=== PATIENT | female | born 1950 | race Caucasian/White ===

== ENCOUNTER 2021-06-26 01:50 | Emergency (ER) | payer OTHER, SELFPAY ==
[~2021-06-26] VITALS: Ht 157.5 cm; Wt 74.8 kg
[2021-06-26 01:58] VITALS: BP_SYST 153
[2021-06-26] MEDS ORDERED: AZIT-93 PO (04:21)
[2021-06-26 04:47] VITALS: BP_SYST 153
== END 2021-06-26 04:47 | disposition home or self-care (01) ==
LOC: SED 01:50
DX: J40 Bronchitis, not specified as acute or chronic (principal); Z88.1 Allergy status to other antibiotic agents; Z20.822 Contact with and (suspected) exposure to COVID-19
CPT/HCPCS: 36415; 71045; 87804 ×2; 99284; C9803; U0003